=== PATIENT | male | born 1955 | race Caucasian/White ===

== ENCOUNTER 2018-02-18 07:11 | Inpatient (IN) ==
[2018-02-18] MEDS ORDERED: cefTRIAXone 1,000 MG in SODIUM CHLORIDE 0.9% 100 ML IV STA (08:10)
[2018-02-18 08:54] LABS: Basophils % 0.1 % (0.0-0.8); Hematocrit 39.6 VOL% (42.0-52.0); Hemoglobin 13.1 GM/DL (14.0-18.0); Immature Granulocytes % 0.9 %; Immature Granulocytes Absolute 0.18 #; Lymphocytes # 1.6 10*3/uL (1.4-4.0); Lymphocytes % 7.7 % (21.2-54.2); Mean Corpuscular HGB Conc 33.1 GM/DL (32-36); Mean Corpuscular Hemoglobin 28 PG (27-34); Mean Corpuscular Volume 85.7 FL (87-102); Mean Platelet Volume 11.4 FL (9.6-12.0); Monocytes # 1.4 10*3/uL (0.11-0.8); Monocytes % 6.7 % (1.7-12.7); Neutrophils # 17.5 10*3/uL (1.4-7.4); Neutrophils % 84.6 % (38.7-73.9); Platelet Count 214 T/CUMM (130-400); Red Blood Count 4.62 MC/CUMM (3.8-5.5); Red Cell Distribution Width 14.8 % (9.3-17.3); White Blood Count 20.8 T/CUMM (4-12)
[2018-02-18] MEDS: DEXAMETHASONE INJ 10 MG in SODIUM CHLORIDE 0.9% 50 ML IV SCH (09:05)
[2018-02-18 09:18] LABS: Albumin 3.7 G/DL (3.4-5.0); Bilirubin,Total 0.7 MG/DL (0.2-1.0); Calcium 9.1 MG/DL (8.5-10.1); Osmolality,Calculated 290.1 MOS/KG (273-304); Potassium 4.4 MMOL/L (3.5-5.1); Total Protein 7.7 G/DL (6.4-8.3)
[2018-02-18 09:31] LABS: Platelet Estimate Adequate
[2018-02-18 09:34] LABS: Hypochromasia Slight
[2018-02-18] MEDS ORDERED: ONDANSETRON 4 MG/2 ML VIAL IV PRN (15:57)
[2018-02-18] MEDS ORDERED: DEXTROSE 5% NACL 0.45% 1,000 ML IV SCH (15:57)
[2018-02-18] MEDS ORDERED: ACETAMINOPHEN 325 MG TABLET PO PRN (15:57)
[2018-02-18] MEDS: DOCUSATE SODIUM 100 MG CAPSULE PO SCH ×2 (16:52→21:47)
[2018-02-18] MEDS: SODIUM CHLORIDE 0.9% 1,000 ML IV SCH (16:59)
[2018-02-18] MEDS ORDERED: CLINDAMYCIN INJ 300 MG in PREMIX 1 EACH IV SCH (17:00)
[2018-02-18] MEDS ORDERED: methylPREDNISolone SOD SUC 40 MG/1 ML VIAL IV ONE (20:39)
[2018-02-18] MEDS ORDERED: diphenhydrAMINE 50 MG/1 ML VIAL IV PRN (20:41)
[2018-02-18] MEDS: cefTRIAXone 1,000 MG in SYRINGE 1 EACH IV SCH (21:47)
[2018-02-18] MEDS: CLINDAMYCIN INJ 300 MG in PREMIX 1 EACH IV SCH (21:56)
[2018-02-19 04:58] LABS: Basophils % 0.1 % (0.0-0.8); Hematocrit 38.3 VOL% (42.0-52.0); Hemoglobin 12.4 GM/DL (14.0-18.0); Immature Granulocytes % 0.7 %; Lymphocytes # 1.2 10*3/uL (1.4-4.0); Lymphocytes % 8.1 % (21.2-54.2); Mean Corpuscular HGB Conc 32.4 GM/DL (32-36); Mean Corpuscular Hemoglobin 28 PG (27-34); Mean Corpuscular Volume 86.1 FL (87-102); Mean Platelet Volume 11.4 FL (9.6-12.0); Monocytes # 0.3 10*3/uL (0.11-0.8); Monocytes % 2.2 % (1.7-12.7); Neutrophils # 12.8 10*3/uL (1.4-7.4); Neutrophils % 88.9 % (38.7-73.9); Platelet Count 229 T/CUMM (130-400); Red Blood Count 4.45 MC/CUMM (3.8-5.5); Red Cell Distribution Width 14.6 % (9.3-17.3); White Blood Count 14.4 T/CUMM (4-12)
[2018-02-19 05:24] LABS: Calcium 8.6 MG/DL (8.5-10.1); Osmolality,Calculated 302.6 MOS/KG (273-304); Potassium 5.1 MMOL/L (3.5-5.1)
[2018-02-19] MEDS: CLINDAMYCIN INJ 300 MG in PREMIX 1 EACH IV SCH ×3 (07:10→21:54)
[2018-02-19] MEDS: cefTRIAXone 1,000 MG in SYRINGE 1 EACH IV SCH ×2 (08:56→21:47)
[2018-02-19] MEDS: DEXAMETHASONE INJ 10 MG in SODIUM CHLORIDE 0.9% 50 ML IV SCH (09:08)
[2018-02-19] MEDS: SODIUM CHLORIDE 0.9% 1,000 ML IV SCH ×3 (10:06→15:49)
[2018-02-19] MEDS: DOCUSATE SODIUM 100 MG CAPSULE PO SCH ×2 (10:07→21:46)
[2018-02-19] MEDS: INSULIN REGULAR 100 UNIT/ML SUBCUT SCH ×3 (13:05→21:51)
[2018-02-19] MEDS: CEFDINIR 25 MG/ML 100 ML/BOTTLE PO SCH (21:46)
[2018-02-20] MEDS: CLINDAMYCIN INJ 300 MG in PREMIX 1 EACH IV SCH (07:15)
[2018-02-20] MEDS: SODIUM CHLORIDE 0.9% 1,000 ML IV SCH ×2 (07:16→07:18)
[2018-02-20 07:34] VITALS: BP 134/78
[2018-02-20] MEDS: cefTRIAXone 1,000 MG in SYRINGE 1 EACH IV SCH (09:27)
[2018-02-20] MEDS: DOCUSATE SODIUM 100 MG CAPSULE PO SCH (09:27)
[2018-02-20] MEDS: INSULIN REGULAR 100 UNIT/ML SUBCUT SCH ×2 (09:28→11:47)
[2018-02-20] MEDS: CEFDINIR 25 MG/ML 100 ML/BOTTLE PO SCH (09:28)
[2018-02-20] MEDS: DEXAMETHASONE INJ 10 MG in SODIUM CHLORIDE 0.9% 50 ML IV SCH (09:28)
[2018-02-20] MEDS ORDERED: CLINDAMYCIN 300 MG CAPSULE PO SCH (14:00)
== END 2018-02-20 11:50 | disposition home or self-care (01) | DRG 153 ==
LOC: N.ED 07:11 → N.EDINP 08:25 → N.5E 13:14
PROVIDERS: ADMIT Family Medicine; ATTEND Family Medicine